=== PATIENT | male | born 1975 | race Caucasian/White ===

== ENCOUNTER 2019-10-31 11:35 | Emergency (ER) | payer OTHER, SELFPAY ==
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
[2019-10-31 11:40] VITALS: BP 147/99; PULSE 100; TEMP 36.5; O2SAT 98
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
[2019-10-31] MEDS: KETOROLAC 30 MG/ML VIAL (*BKC) IV PUSH (11:56)
[2019-10-31] MEDS: TETANUS,DIPHTHERIA,AC PERTUSSIS ADULT 0.5 ML (ADACEL) IM (12:01)
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
== END 2019-10-31 13:36 | disposition home or self-care (01) ==
PROVIDERS: Emergency Provider Emergency Medicine; PCP Family Medicine
DX: S61.244A Puncture wound with foreign body of right ring finger without damage to nail, initial encounter (principal); Z23 Encounter for immunization; M19.90 Unspecified osteoarthritis, unspecified site; K21.9 Gastro-esophageal reflux disease without esophagitis; W34.00XA Accidental discharge from unspecified firearms or gun, initial encounter
CPT/HCPCS: 12001; 73130; 90471; 90715; 96365; 96375; 99284; J0690; J1885

== ENCOUNTER 2020-07-12 00:49 | Outpatient (CLI) | payer OTHER, SELFPAY ==
[2020-07-12 18:32] LABS: SARS-CoV-2 RNA PCR Negative
== END 2020-07-12 00:50 | disposition home or self-care (01) ==
LOC: ANHCOVIDDT 00:50
PROVIDERS: PCP Family Medicine Sports Medicine; Visit Provider Internal Medicine Gastroenterology
DX: Z01.812 Encounter for preprocedural laboratory examination (principal); Z20.828 Contact with and (suspected) exposure to other viral communicable diseases
CPT/HCPCS: 87635; C9803; U0003

== ENCOUNTER 2020-07-15 00:29 | Day surgery (SDC) | payer OTHER, SELFPAY ==
[2020-07-04 14:56] VITALS: BMI 33.2
[2020-07-15] MEDS: LACTATED RINGERS 1,000 ML 150 ML IV CONT (11:57)
[2020-07-15 12:00] VITALS: BP 131/85; PULSE 72; RESP 18; TEMP 35.9; O2SAT 97
--- NOTE | 2020-07-15 12:18 | WPDANESEPPF ---
Anes - Initial Pre Proc Eval Procedure: Operation Date: 07/15/20 13:00 Proposed Procedures p Screening Colonoscopy - Vishnu Rhoades MD Date/Time: 07/15/20 12:18 Surgeon: Vishnu Rhoades MD Pre Op Diagnosis: Fam Hx Colon Ca Patient Data Age: 45 Gender: M Height: 5 ft 9 in Weight: 103 kg Last Vital Signs Temp 96.6 F L 07/15/20 12:00 Pulse 72 07/15/20 12:00 Resp 18 07/15/20 12:00 BP 131/85 07/15/20 12:00 Pulse Ox 97 07/15/20 12:00 Allergies Allergy/AdvReac Type Severity Reaction Status Date / Time No Known Allergies Allergy Verified 07/15/20 11:46 Home Medications Medication Instructions Recorded Confirmed Type No Home Medications 07/15/20 07/15/20 History Patient hx anesthesia problems: none Family hx anesthesia problems: none PMFSH Past Medical History Medical History (Updated 11/01/19 @ 00:00 by Yvonne Stratton) Arthritis Bronchitis GERD (gastroesophageal reflux disease) Pneumonia Right wrist fracture Seasonal allergies Surgical History Surgical History (Updated 10/31/19 @ 11:43 by Nadia Diaz) H/O local excision of skin lesion History of appendectomy History of cardiac cath Family History Family History Mother Hypertension Social History Social History Smoking status: Never smoker Smokeless tobacco user: chewing tobacco Alcohol intake: current Drinks per week: 0 Alcohol use details: MAY HAVE A COUPLE DRINKS PER YEAR Substance use: never Substance use type: does not use Living arrangements: with family Gender identity (if verbalized by the patient): Male Spiritual care concerns: No Anes - Eval Final PreProcedure Day of Procedure 07/15/20 12:18 Patient weight: overweight Heart: regular rate and rhythm Lungs: clear to auscultation Airway: Mallampati scale class II Neurological: alert and oriented Last oral intake: >/= 8 hours ASA classification: III Emergent: no Anesthetic plan: proceed Anesthesia type and monitoring: general GIVS and standard monitoring Informed Consent: The patient's anesthetic plan and its attendant risks and benefits were discussed with the patient/family/POA. Questions were solicited and answers provided to the satisfaction of the patient/family/POA.
--- NOTE | 2020-07-15 12:55 | PM.HPGS ---
History of Present Illness History of Present Illness Consent: Risks, benefits, and alternatives have been discussed and questions answered. Patient agrees to proceed with procedure. Chief complaint: Fam Hx Colon Ca Narrative: Dontrell Burr is a 45 year old male with colon cancer in father, his last colonoscopy was 4 yeas ago with polyps. Review of Systems Constitutional: Constitutional: Denies headache(s) and Denies weakness Eyes: Eyes: Denies blurry vision ENT: Reports Normal hearing present, Denies headache(s) and Denies neck pain Cardiovascular: Cardiovascular: Denies chest pain and Denies dyspnea Respiratory: Respiratory: Denies dyspnea Gastrointestinal: Gastrointestinal: Reports no additional gastrointestinal complaints Genitourinary: Genitourinary: Denies dysuria Musculoskeletal: Musculoskeletal: Denies neck pain Integumentary/Breasts: Skin/Breast: Denies dry skin Neurologic: Reports Normal hearing present, Denies headache(s) and Denies weakness Psychiatric: Psychiatric: Denies anxiety Endocrine: Endocrine: Denies change in body appearance Hematologic/Lymphatic: Hematologic/Lymphatic: Denies easy bleeding Allergic/Immunologic: Allergic/Immunologic: Denies urticaria PMF Past Medical History Medical History (Updated 07/15/20 @ 12:56 by Vishnu Rhoades MD) Arthritis Bronchitis Family history of colon cancer in father GERD (gastroesophageal reflux disease) Pneumonia Right wrist fracture Seasonal allergies Surgical History Surgical History (Updated 10/31/19 @ 11:43 by Nadia Diaz) H/O local excision of skin lesion History of appendectomy History of cardiac cath Family History Family History Mother Hypertension Social History Social History Smoking status: Never smoker Smokeless tobacco user: chewing tobacco Alcohol intake: current Drinks per week: 0 Alcohol use details: MAY HAVE A COUPLE DRINKS PER YEAR Substance use: never Substance use type: does not use Living arrangements: with family Gender identity (if verbalized by the patient): Male Spiritual care concerns: No Meds Home Medications and Allergies Home Medications Medication Instructions Recorded Confirmed Type No Home Medications 07/15/20 07/15/20 History Allergies Allergy/AdvReac Type Severity Reaction Status Date / Time No Known Allergies Allergy Verified 07/15/20 11:46 Vital Signs Vital Signs - 24 hr 07/15/20 12:00 Temperature 96.6 F L Pulse Rate 72 Respiratory Rate 18 Blood Pressure 131/85 Pulse Oximetry 97 Exam Const: General: comfortable and no acute distress HENMT: General nose exam: Normal nares present Eyes: General: appearance normal, both eyes and all related structures Neck: Neck: no JVD Resp: Auscultation: clear to auscultation bilaterally Cardio: Rate: regular rate Rhythm: regular rhythm GI: Inspection: non-distended GI Palp: Yes Soft to palpation Skin: General skin exam: normal color Neuro: General: gait normal Speech: normal speech Extrem: General: normal to inspection Psych: Mental Status: mental status grossly normal Assessment and Plan Assessment and plan (1) Family history of colon cancer in father: Code(s): Z80.0 - Family history of malignant neoplasm of digestive organs Status: Acute Assessment and Plan: will proceed with colonoscopy
[2020-07-15 13:15] VITALS: BP 121/67; PULSE 60; RESP 20; O2SAT 96
--- NOTE | 2020-07-15 13:17 | PM.PROC ---
Procedure Note - Detailed Date of procedure: 07/15/20 Pre-op diagnosis: Fam Hx Colon Ca Surgeon: Vishnu Rhoades MD Endoscopist(s): Vishnu Rhoades MD Referring Physician(s): Samir Hong, Instrument(s): [id number] [employer] Dehydration Reactor Operator(s): Anali Nieto RN Medication(s): See [facility] [employer] Report Indications: Family History of Colon Cancer (Z80.0) in father. Description of Procedure: Informed consent was obtained with the risks, benefits, and alternatives to sedation and procedure explained, including but not limited to: infection, bleeding, aspiration, perforation, adverse medication reaction, missed diagnosis, and missed lesions. The patient verbalized understanding and signed the informed consent form to proceed with the sedation and the procedure.Patient's last Colonoscopy was 4 years ago.No contraindications were noted on the physical exam. Immediately prior to sedation for endoscopy, the patient's ASA Classification was Class III: severe systemic disease, but not incapacitating. Patient re-examined and no interval changes noted from preoperative history and physical. After the patient was rolled into the procedure room, two methods of identification were used to identify the patient and the procedure to be performed prior to the procedure.Anesthesia was administered by anesthesia service. The bowel was prepared using SUPREP. The quality of the prep was excellent. Once the patient was comfortable a digital rectal exam was performed, and no masses were palpated. The patient was placed in the left lateral decubitus position.The instrument was inserted into the rectum and then advanced to the cecum.A retroflexion was performed in the rectum. The withdrawal time from the cecum was 7 minutes. The patient tolerated the procedure well. The patient's heart rate was normal. The oxygen saturation and skin color were normal. The patient will be recovered per established procedures and protocols upon discharge from the endoscopy suite. Findings: There were two 2 mm to 3 mm polyps observed in the descending colon. Multiple cold forceps polypectomies were performed. The polyps were completely excised. A few small diverticula were present in the transverse colon, in the descending colon, and in the sigmoid colon. The diverticula were not actively bleeding, no inflammation. Endoscopic Diagnosis: Colonic Polyp(s) (K63.5) Diverticulosis without Perforation or Abscess without Bleeding (K57.30) Suggested Billing Codes: Colonoscopy, flexible; with biopsy, single or multiple (16176) Recommendations: Ok to go home after recovery Next colonoscopy in 3 years Resume Diet Resume Home Medications Follow-up with your primary care physician for general care.
[2020-07-15 13:24] VITALS: BP 145/86; PULSE 60; RESP 23; O2SAT 95
[2020-07-15 13:34] VITALS: BP 127/85; PULSE 57; RESP 22; O2SAT 96
== END 2020-07-15 13:39 | disposition home or self-care (01) ==
PROVIDERS: PCP Family Medicine Sports Medicine; Visit Provider Internal Medicine Gastroenterology
PROC: 0DJD8ZZ Inspection of Lower Intestinal Tract, Via Natural or Artificial Opening Endoscopic (ICD-10-PCS; CPT 45378; principal; 2020-07-15 13:00)
DX: Z12.11 Encounter for screening for malignant neoplasm of colon (principal); K63.5 Polyp of colon; K57.30 Diverticulosis of large intestine without perforation or abscess without bleeding; Z80.0 Family history of malignant neoplasm of digestive organs; F17.220 Nicotine dependence, chewing tobacco, uncomplicated
CPT/HCPCS: 45380; 87635; 88305; C9803; J2704; J7120; U0003

== ENCOUNTER 2021-08-23 07:10 | Emergency (ER) | payer OTHER, SELFPAY ==
[2021-08-23] VITALS (10 sets, daily range): BP systolic 48–136; BP diastolic 39–90; PULSE 58–74; RESP 18–33; TEMP 36.1–37.2; O2SAT 96–99
--- NOTE | ~2021-08-23 | CT_ITS ---
EXAMINATION: CTA chest PE protocol DATE: 08/23/2021 09:31 [employer]VIEW[employer] INDICATION: Positive d-dimer. Covid positive. Evaluate for pulmonary embolism. TECHNIQUE: Computed tomographic angiography (CTA) of the chest was performed with 100 mL Omnipaque-35 0 intravenous contrast. The dose-length product was 789.37 mGy-cm. Maximum intensity projection 3D-re constructions of the aorta and other arteries were constructed by the technologist on a separate work station. Automated exposure control and iterative reconstruction technique were employed. COMPARISON: Chest x-ray dated 08/23/2021. FINDINGS: Study is technically adequate without evidence for pulmonary embolism. Borderline heart siz e. No thoracic lymphadenopathy. Patchy groundglass opacities throughout both lungs, consistent with p neumonia. No endobronchial lesions. No pneumothorax. The upper abdomen is unremarkable. Mild thoracic spondylosis. IMPRESSION: 1. Patchy bilateral groundglass opacities throughout both lungs, consistent with pneumonia. 2: No evidence for pulmonary embolism. Reviewed, dictated and finalized at location A. INTERVIEW[employer] IMPRESSION: 1. Patchy bilateral groundglass opacities throughout both lungs, consistent wit h pneumonia. 2: No evidence for pulmonary embolism.
--- NOTE | ~2021-08-23 | XR_ITS ---
XR chest 1V portable 08/23/2021 08:12 Indication: Covid. Cough and shortness of breath. Chest tightness. Procedure: AP portable chest Comparison: 05/13/2015 Findings: Borderline heart size. Patchy bilateral airspace disease. No pleural effusion or pneumothor ax. No acute osseous abnormality. Impression: 1: Patchy bilateral airspace disease, compatible with pneumonia. Reviewed, dictated and finalized at location A. PRUNER Impression: 1: Patchy bilateral airspace disease, compatible with pneumonia.
--- NOTE | 2021-08-23 07:33 | ED.SOB ---
HPI - SOB/Dyspnea General Chief Complaint: Shortness of Breath/Dyspnea Stated Complaint: SOB, COVID + 08/13 Time Seen by Provider: 08/23/21 07:14 Source: patient Mode of arrival: ambulatory Limitations: no limitations History of Present Illness HPI Narrative: Patient is a 46-year-old male presenting for evaluation of dull, aching chest pain and shortness of breath. Patient states that he has had chest pain since yesterday morning. Pain has been intermittent in nature, associated with coughing and shortness of breath. Patient states he has been Covid positive since August 13. He is unvaccinated. He reports intermittent fever, chills, loss of sense of taste. No significant abdominal pain or diarrhea. Patient states his daughter has had Covid twice, unsure who his recent sick contact is. Patient states his fevers have mostly subsided but he still has a dry cough, shortness of breath. Patient denies any leg swelling or calf pain. No pleuritic pain. Pain is in the front of his chest and middle back. No radiation to the neck, jaw, shoulder. Patient states he has a history of abnormal EKG. States he had a stress test approximately 20 years ago for an EKG that was abnormal and it was normal. 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 He does not smoke. No history of coronary artery disease, hypertension or hyperlipidemia. Related Data Allergies Allergy/AdvReac Type Severity Reaction Status Date / Time No Known Allergies Allergy Verified 07/15/20 11:46 Review of Systems Review of Systems: CONSTITUTIONAL: Reports intermittent fever, chills EYES: Denies visual changes, redness, or discharge. ENT: Denies rhinorrhea, congestion, sore throat, or otalgia. CARDIOVASCULAR: Reports chest pain without palpitations or edema RESPIRATORY: Reports cough and shortness of breath GASTROINTESTINAL: Denies abdominal pain, nausea, vomiting, or diarrhea. GENITOURINARY: Denies dysuria or hematuria. SKIN: Denies rash or itching. MUSCULOSKELETAL: Reports mild back pain without other joint pain or myalgias NEUROLOGIC: Denies headache, numbness, or weakness. [facility] Past Medical History Medical History Arthritis Bronchitis Family history of colon cancer in father GERD (gastroesophageal reflux disease) Pneumonia Right wrist fracture Seasonal allergies Surgical History Surgical History H/O local excision of skin lesion History of appendectomy History of cardiac cath Family History Family History Mother Hypertension Social History Social History Smoking status: Never smoker Smokeless tobacco user: chewing tobacco Alcohol intake: current Drinks per week: 0 Alcohol use details: MAY HAVE A COUPLE DRINKS PER YEAR Substance use: never Substance use type: does not use Gender identity (if verbalized by the patient): Male Spiritual care concerns: No Exam Narrative: GENERAL: Awake, alert, conversant HEAD: Normocephalic, atraumatic. EYES: PERRLA and EOMI. ENT: Nares clear, no rhinorrhea or epistaxis. Mucous membranes moist. NECK: Supple. CHEST: No respiratory distress, breathing even and non labored HEART: Regular rate, sinus rhythm, no murmurs ABDOMEN:Non distended, non tender EXTREMITIES: Normal range of motion. No edema. No calf tenderness bilaterally. SKIN: Warm, dry, no rash. NEURO:No focal deficits. Alert and oriented x3 Course Vital Signs Vital signs: Vital Signs Temperature 36.1 C L 08/23/21 07:34 Pulse Rate 72 08/23/21 07:34 Respiratory Rate 08/23/21 07:34 Blood Pressure 131/90 08/23/21 07:34 Pulse Oximetry 98 08/23/21 07:34 Temperature 37.2 C 08/23/21 08:04 Pulse Rate 58 L 08/23/21 12:16 Respiratory Rate 08/23/21 12:16 Blood Pressure 127/75 08/23/21 12:
--- NOTE | 2021-08-23 07:44 | ECG_ITS ---
Measurements Intervals [place] Rate: 76 P: 44 MN: 171 QRS: 57 QRSD: 101 T: 238 QT: 379 QTc: 426 Interpretive Statements SINUS RHYTHM HIGH LATERAL INFARCT, AGE INDETERMINATE ST-T WAVE ABNORMALITY IN ANTEROLAT/INF LEADS- CONSIDER ISCHEMIA BASELINE ARTIFACT- II, III, AVR, AVF, V2-V6 ABNORMAL ECG Electronically Signed On 08-23-2021 8:34:47 COPYMAN by Chris Jean D.O.
[2021-08-23] MEDS: SODIUM CHLORIDE 0.9% IV 1,000 ML 999 ML IV CONT (07:53)
[2021-08-23] MEDS: ONDANSETRON INJ 4 MG/2 ML VIAL IV PUSH (07:55)
[2021-08-23] MEDS: MORPHINE SULFATE (*CRX) 4 MG/ML INJ IV PUSH (07:55)
[2021-08-23] MEDS: ASPIRIN 81 MG CHEWABLE TABLET 324 MG PO (07:58)
[2021-08-23 08:06] LABS: Hemoglobin 13.8 g/dL (14.0-18.0); Immature Granulocyte Absolute 0.04 K/mm3 (0.00-0.031); Lymphocytes Absolute Auto 0.88 K/mm3 (0.9-3.2); Mean Corpuscular HGB Conc 35.4 g/dl (32-36); Mean Corpuscular Hemoglobin 30.7 pg (26-34); Mean Corpuscular Volume 86.9 fl (80-100); Mean Platelet Volume 10.2 fl (7.4-10.4); Monocytes Absolute Auto 0.8 K/mm3 (0.1-0.6); Neutrophils Absolute Auto 2.3 K/mm3 (1.3-6.7); Platelet Count Result 170 k/mm3 (150-375); Red Blood Count 4.49 M/mm3 (4.6-6.20); Red Cell Distribution Width 11.6 % (11.5-14.5)
[2021-08-23 08:16] LABS: Alanine Aminotransferase 62 U/L (4-50); Alkaline Phosphatase 66 U/L (38-126); Anion Gap 11 mmol/L (8-16); Aspartate Amino Transferase 58 U/L (17-59); Bilirubin,Total 0.8 mg/dL (0.2-1.3); Blood Urea Nitrogen 14 mg/dL (9-20); Calcium 8.7 mg/dL (8.4-10.2); Carbon Dioxide 20 mmol/L (22-30); Chloride 100 mmol/L (98-107); Estimated CRCL calculation 98 ml/min; Estimated Glomerular Filt Rate > 60; Glucose 100 mg/dL (65-110); Sodium 131 mmol/L (137-145)
[2021-08-23 08:28] LABS: NT Pro B Type Natriuretic Pept 230 pg/mL (5-100); Troponin I 0.019 ng/mL (0.000-0.034)
[2021-08-23 08:49] LABS: D Dimer 0.58 ug/mL (<0.48)
[2021-08-23 11:16] LABS: Troponin I 0.018 ng/mL (0.000-0.034)
--- NOTE | 2021-08-23 12:14 | ECG_ITS ---
Measurements Intervals [place] Rate: 60 P: 30 [place]: 183 QRS: 10 QRSD: 106 T: 194 QT: 432 QTc: 433 Interpretive Statements SINUS RHYTHM LEFT VENTRICULAR HYPERTROPHY AND ST-T CHANGE HIGH LATERAL INFARCT, AGE INDETERMINATE ST-T WAVE ABNORMALITY IN ANTEROLATERAL LEADS- CONSIDER ISCHEMIA BASELINE ARTIFACT- II, III, AVF, V4-V6 ABNORMAL ECG Electronically Signed On 08-23-2021 16:07:26 JANITORIAL MAINTENANCE WORKER by Chris Jean D.O.
== END 2021-08-23 12:41 | disposition home or self-care (01) ==
PROVIDERS: Emergency Provider Emergency Medicine; PCP Family Medicine Sports Medicine
DX: U07.1 COVID-19 (principal); J12.82 Pneumonia due to coronavirus disease 2019; M19.90 Unspecified osteoarthritis, unspecified site; R07.89 Other chest pain; K21.9 Gastro-esophageal reflux disease without esophagitis; Z87.01 Personal history of pneumonia (recurrent); F17.220 Nicotine dependence, chewing tobacco, uncomplicated; R94.31 Abnormal electrocardiogram [ECG] [EKG]; I51.7 Cardiomegaly
CPT/HCPCS: 36415; 71045; 71275; 80053; 83880; 84484; 85025; 85380; 93005; 96361; 96374; 96375; 99284; A9270; J2270; J2405; J7030; Q9967

== ENCOUNTER 2021-08-23 21:37 | Emergency (ER) | payer OTHER, SELFPAY ==
--- NOTE | 2021-08-23 21:39 | ECG_ITS ---
Measurements Intervals [place] Rate: 72 P: 26 [place]: 188 QRS: 7 QRSD: 101 T: 180 QT: 385 QTc: 422 Interpretive Statements SINUS RHYTHM LEFT VENTRICULAR HYPERTROPHY AND ST-T CHANGE MINIMAL Q WAVES- HIGH LATERAL LEADS ST-T WAVE ABNORMALITY IN ANTEROLAT/HIGH LAT LEADS- CONSIDER ISCHEMIA BASELINE ARTIFACT- V3, V6 ABNORMAL ECG Electronically Signed On 08-24-2021 6:34:13 PMO CONSULTANT by Chris Jean D.O.
[2021-08-23 21:46] VITALS: BP 129/73; PULSE 70; RESP 24; TEMP 36.8; O2SAT 97
[2021-08-24] VITALS (18 sets, daily range): BP systolic 121–133; BP diastolic 56–77; PULSE 61–82; RESP 12–27; TEMP 36.6; O2SAT 97–100
--- NOTE | 2021-08-24 01:00 | PC.NURSE ---
Patient states he had tested positive with covid via home test on 08/13/21.
[2021-08-24 01:21] LABS: Hematocrit 38.3 % (42.0-52.0); Hemoglobin 13.2 g/dL (14.0-18.0); Mean Corpuscular HGB Conc 34.5 g/dl (32-36); Mean Corpuscular Hemoglobin 30.5 pg (26-34); Mean Corpuscular Volume 88.5 fl (80-100); Mean Platelet Volume 9.5 fl (7.4-10.4); Platelet Count Result 151 k/mm3 (150-375); Red Blood Count 4.33 M/mm3 (4.6-6.20); Red Cell Distribution Width 11.7 % (11.5-14.5); White Blood Count 3.8 K/mm3 (4.5-10.0)
[2021-08-24 01:33] LABS: Alanine Aminotransferase 67 U/L (4-50); Alkaline Phosphatase 48 U/L (38-126); Anion Gap 8 mmol/L (8-16); Aspartate Amino Transferase 68 U/L (17-59); Bilirubin,Total 0.8 mg/dL (0.2-1.3); Blood Urea Nitrogen 13 mg/dL (9-20); Calcium 8.6 mg/dL (8.4-10.2); Carbon Dioxide 24 mmol/L (22-30); Chloride 100 mmol/L (98-107); Estimated CRCL calculation 108 ml/min; Estimated Glomerular Filt Rate > 60; Glucose 87 mg/dL (65-110); Sodium 132 mmol/L (137-145)
[2021-08-24 01:44] LABS: Troponin I < 0.012 ng/mL (0.000-0.034)
[2021-08-24] MEDS: KETOROLAC 15 MG/ML VIAL (*BKC) IV PUSH (01:53)
[2021-08-24] MEDS: SODIUM CHLORIDE 0.9% IV 1,000 ML 999 ML IV CONT (01:53)
[2021-08-24] MEDS: MORPHINE SULFATE (*CRX) 4 MG/ML INJ IV PUSH (01:53)
[2021-08-24] MEDS: BENZONATATE 100 MG CAPSULE 200 MG PO (01:53)
[2021-08-24] MEDS: IPRATROPIUM BR 0.02% INH SOLN 0.5 MG/2.5 ML VIAL INHALATION (01:59)
[2021-08-24] MEDS: ALBUTEROL SULFATE NEB 2.5 MG/0.5 ML INH 5 MG INHALATION (01:59)
[2021-08-24 02:00] LABS: Lymphocytes Absolute Manual 1.71 K/mm3 (1.1-4.5); Monocytes Absolute Manual 0.34 K/mm3 (0.1-0.90); Monocytes Percent Manual 9 % (3-9); Neutrophils Percent Manual 46 % (46-73); Total Cells Counted 100
[2021-08-24 02:01] LABS: Atypical Lymphocytes Present; Large Platelets Present; Ovalocytes 1+ (NORMAL); Platelet Estimate Adequate (Adequate)
[2021-08-24 02:02] LABS: Stomatocytes 1+ (NORMAL)
--- NOTE | 2021-08-24 02:40 | ED.GENADULT ---
HPI - General Adult General Chief complaint: Chest Pain Stated complaint: Heart Fluttering Time Seen by Provider: 08/24/21 00:59 History of Present Illness HPI narrative: Patient is a 46-year-old gentleman who presents the emergency department with chief complaint of chest and back pain. Patient reports that he was seen in the emergency department yesterday after he had been diagnosed with COVID-19 and was having pain in his chest. Patient had a abnormal EKG but had negative troponins. The patient is to follow-up with cardiology as an outpatient and the patient states that he was coughing and his chest hurting hurting more. Related Data Allergies Allergy/AdvReac Type Severity Reaction Status Date / Time No Known Allergies Allergy Verified 07/15/20 11:46 Review of Systems Review of Systems: A 10 system review of systems was completed on the patient and is negative except for what is stated in the HPI. Nursing and ancillary documentation was reviewed. PMFSH Past Medical History Medical History Arthritis Bronchitis Family history of colon cancer in father GERD (gastroesophageal reflux disease) Pneumonia Right wrist fracture Seasonal allergies Surgical History Surgical History H/O local excision of skin lesion History of appendectomy History of cardiac cath Family History Family History Mother Hypertension Social History Social History Smoking status: Never smoker Smokeless tobacco user: chewing tobacco Alcohol intake: current Drinks per week: 0 Alcohol use details: MAY HAVE A COUPLE DRINKS PER YEAR Substance use: never Substance use type: does not use Gender identity (if verbalized by the patient): Male Spiritual care concerns: No Exam Narrative: GENERAL: Well-appearing, well-nourished, and in no acute distress. HEAD: Normocephalic, atraumatic. EYES: PERRLA and EOMI. ENT: Nares clear, no rhinorrhea or epistaxis. Mucous membranes moist. NECK: Supple. CHEST: Clear to auscultation. No respiratory distress. HEART: Regular rate and rhythm. No murmur heard. Normal peripheral pulses. ABDOMEN: Soft, nontender, nondistended, normal active bowel sounds. EXTREMITIES: Normal range of motion. No edema. SKIN: Warm, dry, no rash. NEURO: No focal deficits. Alert and oriented x3. PSYCH: Normal mood and affect. Course Course Emergency Course: EKG shows T wave inversions rate of 72 findings consistent with LVH Vital Signs Vital signs: Vital Signs Temperature 36.8 C 08/23/21 21:46 Pulse Rate 70 08/23/21 21:46 Respiratory Rate 24 H 08/23/21 21:46 Blood Pressure 129/73 08/23/21 21:46 Pulse Oximetry 97 08/23/21 21:46 Temperature 36.8 C 08/23/21 21:46 Pulse Rate 82 08/24/21 02:07 Respiratory Rate 20 08/24/21 02:07 Blood Pressure 133/74 08/24/21 00:54 Pulse Oximetry 100 08/24/21 00:54 Medical Decision Making Vital Signs Vital Signs: Vital Signs Temperature 36.8 C 08/23/21 21:46 Pulse Rate 70 08/23/21 21:46 Respiratory Rate 24 H 08/23/21 21:46 Blood Pressure 129/73 08/23/21 21:46 Pulse Oximetry 97 08/23/21 21:46 Temperature 36.8 C 08/23/21 21:46 Pulse Rate 82 08/24/21 02:07 Respiratory Rate 20 08/24/21 02:07 Blood Pressure 133/74 08/24/21 00:54 Pulse Oximetry 100 08/24/21 00:54 Lab Data Result diagrams: 08/24/21 01:16 08/24/21 01:16 Labs: Lab Results 08/24/21 08/24/21 08/24/21 Range/Units 01:16 01:16 01:16 WBC 3.8 L (4.5-10.0) K/mm3 RBC 4.33 L (4.6-6.20) M/mm3 Hgb 13.2 L (14.0-18.0) g/dL Hct 38.3 L (42.0-52.0) % MCV 88.5 (80-100) fl MCH 30.5 (26-34) pg MCHC 34.5 (32-36) g/dl RDW 11.7 (11.5-1
== END 2021-08-24 03:16 | disposition home or self-care (01) ==
PROVIDERS: Emergency Provider Emergency Medicine; PCP Family Medicine Sports Medicine
DX: U07.1 COVID-19 (principal); R07.89 Other chest pain; K21.9 Gastro-esophageal reflux disease without esophagitis; Z87.01 Personal history of pneumonia (recurrent); F17.220 Nicotine dependence, chewing tobacco, uncomplicated; I51.7 Cardiomegaly; R94.31 Abnormal electrocardiogram [ECG] [EKG]
CPT/HCPCS: 36415; 71045; 71275; 80053; 83880; 84484; 85025; 85380; 93005; 94640; 96361; 96374; 96375; 99284; A9270; J1885; J2270; J2405; J7030; Q9967

== ENCOUNTER 2025-03-02 11:02 | Emergency (ER) | payer OTHER, SELFPAY ==
--- OUTSIDE RECORDS SUMMARY | 2025-03-02 11:05 | XMS_ITS ---
Author Organization [employer] Address [address] [place] [address] [address] [place] [address] Care Team Providers Care Hay Chopper Name Role Phone Leonard Daigle MD Primary Care Provider UnavailRonni Lemus Unavailable [phone] Peggy Castillo Unavailable Unavailable Allergies No Known Allergies REASON FOR VISIT Acid Reflux, Follow-up Social History Tobacco Control (Standard) Question Answer Notes Additional Findings: Tobacco user Chews tobacco Encounters Encounter Location Date Provider Diagnosis [facility], [address] [place] [address] 12/27/2024 Ronni Grady Plan Of Treatment No Information Progress Notes * Dontrell CASILLAS TDOB: [birth year] (49 yo M)Acc No.[id number]:12/27/2024 Patient: Dontrell GARCIA Provider: Levy Grady D.O. :1975 A ge:49 Y S ex:Male Date:12/27/2024 Address:[address] [place], [place] [id number] Pcp:Leonard Daigle MD Subjective: * Chief Complaints: * 1 . Acid Reflux. 2. Follow-up. * ROS: G I Bleeding: Melena N o. H ematochezia N o. H ematemesis?No. A nemia N o. G I-Stomach: Nausea/Emesis N o. P ain N o. P UD N o.?Anorexia N o. G I-Esophageal: Dysphagia N o. O dynophagia N o. C hest Pain?No. G ER Sx Y es. G I-Liver/GB: Jaundice N o. H epatitis N o. G allstones N o. P ancreatitis N o. G I-Colon: Colitis/IBS N o. D iarrhea N o. C onstipation?No. H emorrhoids N o. G eneral/Constitutional: Fever N o. C hills N o. W eight Loss N o.? S kin: Rash N o. P ruritus N o. I cterus N o. P hotosensitivity N o. E NT: Diplopia N o. V isual Loss N o. T innitus N o. V ertigo N o. D eafness Y es. P oor Dentition N o. H ematology: Easy Bruising N o. H emophilia N o. H ematologic Malignancy N o. L ymphadenopathy N o. H istory of Petechia N o. A nemia?No. C ardiovascular: Palpitations N o. S yncope N o. P ND N o.?ESCAMILLA N o. O rthopnea N o. C hest Pain N o. R espiratory: Cough N o. S putum Production N o. H emoptysis?No. W heezing N o. T B N o. S OB N o. N eurologic: Stroke N o. S eizure Disorder N o. T remor N o. P aralysis N o. S yncope N o. G enitourinary: Dysuria N o. P olyuria N o. I ncontinence N o. R enal Failure N o. H ematuria N o. M usculoskeletal: Joint Pain N o. S welling N o. S tiffness N o. M uscle Weakness N o. M yalgia N o. E ndocrine: Thyroid Disease N o. D iabetes N o. P olyphagia?No. P olydipsia N o. P sychiatric: Delusions N o. H allucinations N o. S uicidal Ideations N o. A llergy/Immunology: Hives N o. C hronic Sinusitis N o. H istory of Anaphylaxis N o. * Medical History: G ERD, Hiatal Hernia, Colon Polyps, Hearing Loss. * Surgical History: C olonoscopy 11/2024, Appendectomy , Vasectomy , Eye Surgery , Cardiac Catheterization . * Family History: M other: diagnosed with Malignant neoplasm of colon, unspecified part of colon. * Social History: T obacco Use: T obacco Control (Standard) A dditional Findings: Tobacco user C hews tobacco D rugs/Alcohol: D o you Drink Alcohol?: Yes, Rarely. * Medications: N one * Allergies: N .K.D.A. Objective: * Vitals: * Examination: P hysical Examination: GENERAL: A ppears stated age, in no apparent distress. SKIN: N o rash, ecchymoses, petechial, or telangiectasia.? HEENT: Normocephalic, EOMI, Nasal & buccal mucosa clear. NECK: Supple without masses., Normal Range of Motion, No jugular venous distention. LYMPH NODES: No cervical, supraclavicular, or axillary lymphadenopathy. CARDIAC: RRR without murmur, gallop, or rub. PULMONARY: Clear to auscultation and percussion bilaterally. ABDOMEN: B S positive, soft, non-tender, No masses, organomegaly, rebound, or ascites. EXTREMITIES: N o cyanosis, clubbing, or edema. NEUROLOGIC: A lert and oriented x3, No asterixis, Nonfocal examination. C QM Exceptions: Influenza Vaccine not administered: R gonzalez: M edical Reason Pneumococcal Vaccine not administered: R gonzalez: M edical Reason TD or Tdap vaccine not administered R gonzalez: M edical reason Zoster vaccine not administered R gonzalez: M edical reason Assessment: Plan: * Treatment: * Images: * Electronic signature of Godfrey Grady DO on 03/02/2025 at 11:04 AM CDT Sign off status: Pending * Provider: Levy Grady D.O. Date: 0 12/27/2024 Generated for Anastasiia berkowitz/Kasi/Sascha on: 03/02/2025 11:04 AM CDT
--- OUTSIDE RECORDS SUMMARY | 2025-03-02 11:05 | XMS_ITS | Clinical Summary ---
Author Organization [facility] Address [address] [place] [address] Care Team Providers Care Rn Surgery Icu Name Role Phone Samir Hong MD Primary Care Provider [phone] Allergies No known active allergies Medications pantoprazole DR (PROTONIX) 40 mg EC tabletIndicatio ns:Mucositis Prophylaxis Take 1 tablet (40 mg total) by mouth daily for 14 days 14 tablet 2 Active Additional Information Patient not taking.Reported on 09/21/2024 albuterol 2.5 mg /3 mL (0.083 %) nebulizer solution Take 3 mL (2.5 mg total) by nebulization every 6 (six) hours as needed for wheezing 75 mL 2 Active Additional Information Patient not taking.Reported on 09/21/2024 testosterone cypionate, micro (testosterone cyp, micro, bulk,) 100 % powder 0 3 Active testosterone enanthate 200 mg/mL injection Inject 1 mL (200 mg total) into the muscle as instructed once a week 180 mg 1.9 , I a week Active metoprolol XL (TOPROL-XL) 25 mg extended release tablet Take 1 tablet (25 mg total) by mouth daily 90 tablet 11 5 09/21/19 26 Active Active Problems Problem Noted Date Diagnosed Date Pleuritic chest pain 08/27/2021 Encounters Date Type Department Care Team Description 02/25/2025 Telephone [facility] Cardiology [address] [place] [address] [address], [place] [address] Bubba Conway MD cardiac clearance from Last 3 Months Immunizations Immunization Administration Dates Next Due Influenza, Trivalent, IM (V) 05/18/2012 Surgical History Surgery Date Site/Laterality Comments APPENDECTOMY Appendectomy CARDIAC CATHETERIZATION Medical History Medical History Date Comments Hx Other Medical 2003 Heart Cath Hx Other Medical dyslipidemia; C omments: NESSA 03/29/2014 - Hx Other Medical overweight; Com ments: NESSA 03/29/2014 - Gastroesophageal reflux disease GERD Chest pain Family History Medical History Relation Name Comments Other Father 2 Alive and well; Hypertension Mother 2 Hypertension; Other Mother 2 Alive and well; Relation Name Status Comments Father 1 Alive Father 2 Mother 1 Alive Mother 2 Social History Tobacco Use Types Packs/Day Years Used Date Smoking Tobacco: Never Smokeless Tobacco: Current Chew Alcohol Use Standard Drinks/Week Comments Yes 0 (1 standard drink = 0.6 oz pur e alcohol) Sex and Gender Information Value Date Recorded Sex Assigned at Not on file Legal Sex 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 CUTTER Gender Identity Not on file Sexual Orientation Not on file Obstetrics History Last Filed Vital Signs Vital Sign Reading Time Taken Comments Blood Pressure 124/86 09/21/2024 8:49 AM HAT CUTTER Pulse 63 09/21/2024 8:49 AM HAT CUTTER Temperature 36.5 C (97.7 F) 08/28/2021 8:00 AM HAT CUTTER Respiratory Rate 16 09/21/2024 8:49 AM HAT CUTTER Oxygen Saturation 98% 09/21/2024 8:49 AM HAT CUTTER Inhaled Oxygen Concentration - - Weight 104.3 kg (230 lb) 09/21/2024 8:49 AM HAT CUTTER Height 175.3 cm (5' 9) 09/21/2024 8:49 AM HAT CUTTER Body Mass Index 33.97 09/21/2024 8:49 AM HAT CUTTER Plan of Treatment Health Maintenance Due Date Last Done Comments Colon Cancer Screening-Colonoscopy 1975 Depression Screening 1975 Hepatitis C Screening 1975 Hepatitis B Screening 1994 Regular Well Visit/Exam 18-64 1994 Influenza Vaccine (#1) 2025 8, 05/18/2012 DTaP/Tdap/Td Vaccine (2 - Td or Tdap) 10/30/2029 10/31/2019 Pneumococcal vaccine <65 Aged Out No longer eligible based on patient's age to complete this topic Insurance [facility] CHOICE PLUS [facility] HMO/PPO Address: [address] [place] [address] [facility] HMO/PPO Address: [address] [place] [address] Advance Directives For more information, please contact: [phone] * Full Code (Latest Code Status on File) Date Activated Date Inactivated Comments 08/27/2021 3:30 AM 08/28/2021 10:00 PM Care Teams Rn Surgery Icu Relationship Specialty Start Date End Date Samir Hong MD [address] [place] [address] PCP - General Family Medicine 09/21/21
--- OUTSIDE RECORDS SUMMARY | 2025-03-02 11:05 | XMS_ITS | Referral Summary ---
Author Organization [facility] Address [address] [place] [address] Care Team Providers Care Orthopedic Dentist Name Role Phone Samir Hong MD Primary Care Provider [phone] Encounters Date Type Department Care Team Description 02/25/2025 Telephone [facility] Cardiology [address] [place] [address] [place] [address] uBbba Conway MD cardiac clearance from Last 3 Months Allergies No known active allergies Medications pantoprazole [...] Date Diagnosed Date Pleuritic chest pain 08/27/2021 Immunizations Immunization Administration Dates Next Due Influenza, Trivalent, IM (MDV) 05/18/2012 Social History Tobacco Use Types Packs/Day Years Used Date Smoking Tobacco: Never Smokeless Tobacco: Current Chew Alcohol Use Standard Drinks/Week Comments Yes 0 (1 standard drink = 0.6 oz pur e alcohol) Sex and Gender Information Value Date Recorded Sex Assigned at Not on file Legal 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 Gender Identity Not on file Sexual Orientation Not on file Last Filed Vital Signs Vital Sign Reading Time Taken Comments Blood Pressure 124/86 09/21/2024 8:49 AM JIGGER OPERATOR Pulse 63 09/21/2024 8:49 AM JIGGER OPERATOR Temperature 36.5 C (97.7 F) 08/28/2021 8:00 AM JIGGER OPERATOR Respiratory Rate 16 09/21/2024 8:49 AM JIGGER OPERATOR Oxygen Saturation 98% 09/21/2024 8:49 AM JIGGER OPERATOR Inhaled Oxygen Concentration - - Weight 104.3 kg (230 lb) 09/21/2024 8:49 AM JIGGER OPERATOR Height 175.3 cm (5' 9) 09/21/2024 8:49 AM JIGGER OPERATOR Body Mass Index 33.97 09/21/2024 8:49 AM JIGGER OPERATOR Plan of Treatment Not on file Insurance [facility] CHOICE PLUS [facility] CHOICE PLUS Advance Directives For more information, please contact: [phone] * Full Code (Latest Code Status on File) Date Activated Date Inactivated Comments 08/27/2021 3:30 AM 08/28/2021 10:00 PM Care Teams Orthopedic Dentist Relationship Specialty Start Date End Date Samir Hong MD [address] [place] [address] PCP - General Family Medicine 09/21/21
--- OUTSIDE RECORDS SUMMARY | 2025-03-02 11:05 | XMS_ITS | Patient Health Record ---
Author Organization [employer] Address [address] [facility] [address] [place] [address] Care Team Providers Care Industrial Chemistry Teacher Name Role Phone Leonard Daigle MD Primary Care Provider UnavailRonni Lemus Unavailable [phone] Peggy Castillo Unavailable Unavailable Allergies No Known Allergies Results Component Value Reference Range Notes Pathology Report Reviewed date:12/06/2024 12:44:29 PM Interpretation: Performing Lab: Notes/Report: DIAGNOSES A. Ascending Colon Polyp, Polypectomy: -Sessile serrated polyp/adenoma. B. Descending Colon Polyp, Polypectomy: -Tubular adenoma. CLINICAL HISTORY Screening in patient at increased risk. Colorectal cancer in mother before age 60. One 5 mm polyp in the ascending colon. One 5 mm polyp in the descending colon. GROSSING DESCRIPTION A. The specimen(s) are received in a Formalin-filled container labeled with the patients name and designated Ascending Colon Polyp Polypectomy. It contains 1 Romero to Brown fragment(s) of tissue that measure 4mm x 4mm x <1mm . The specimen was submitted entirely in 1 cassette(s). B. The specimen(s) are received in a Formalin-filled container labeled with the patients name and designated Descending Colon Polyp Polypectomy. It contains multiple Romero to Brown fragments ranging from <1mm x <1mm x <1mm to 3mm x 2mm x 1mm. The specimen was submitted entirely in 1 cassette(s). MICROSCOPIC DESCRIPTION Complete 100 microscopic examination is performed. The findings are included in the diagnosis rendered. Specimens A and B were evaluated with H&E stain. Textual Pathology Report SEE NOTES Reason For Referral Referral Organization [employer] Referring Provider First Name Ronni Referring Provider Last Name Grady Referring Provider Speciality Gastroente rology Referred Organization [facility] Referred Provider Ronni Grady Referred Address [address] [facility] [address],[place], [place],[address],[place] Referred Provider Specialty Gastroentero logy Referral Priority Routine Referral Organization [facility] [employer] Referring Provider First Name Ronni Referring Provider Last Name Miguel A [facility] Referred Organization [facility] Referred Provider Micah Gradyson Referred Address [address] [facility] [address],[place], [place],[address], Referred Provider Specialty Gastroentero logy General Notes Bebeto Reddyera 01/13 02:40:02 PM >CPT Code GEEGD Description: Esophagogastroduodenoscopy, Authorization Number: [id number], , Review Date: 01/24/2025 3:30:37 PM, Expiration Date: 04/24/2025, Status: Your case has been Approved Referral Priority Routine Referral Appointment Date 01/28/2025 Medications Medication SIG (Take, Route, Fr equency, Duration) Notes Start Date End Date Status Omeprazole 40 MG 1 capsule Orally Onc e a day for 30 day(s) 01/28/2025 Active Social History Tobacco Use: Social History Observation Description Date Details (start date - stop date) Former Smoker NA - NA Tobacco Control (Standard) Question Answer Notes Tobacco use: Former smoker How long has it been since you last smoked? Grea ter than 10 years Additional Findings: Tobacco user Chews tobacco Problems Problem Type SNOMED Code ICD Code Onset Dates Problem Status W/U Status Risk Notes Problem 55073195 Dysphagia (R13.10) Active confirmed Reports roughly 6 episodes of dysphagia however the last one occurred about 2 years ago. Esophagitis versus stricture versus EOE versus other Problem [id number] Chronic GERD (K21.9) Active confirmed We had a very long discussion regarding the natural history of chronic reflux disease. We discussed that his diet and lifestyle are likely greatly contributing to his reflux. A poor diet that is high in sugar and fat exacerbates his symptoms. He chews tobacco and occasional alcohol use also greatly exacerbate his symptoms. Discussed possible anatomical variations such as a hiatal hernia or large Hill flap that can exacerbate his reflux symptoms. Discussed need for EGD to exclude underlying Marquez's and anatomical variations. Vital Signs Height 68.5 in 01/24/2025 Weight 225 lbs 01/24/2025 BMI 33.71 kg/m2 01/24/2025 Procedures Procedure Date Ordered Date Performed Result Body Sit e Upper Endoscopy 01/24/2025 N/A Encounters Encounter Location Date Provider Diagnosis [facility] [address] [place] [address] 11/21/2024 Ronni Grady Colon cancer screening Z12.11 ; Family history of colon cancer Z80.0 and Benign colon polyp K63.5 [facility], [address] [place] [address] 01/24/2025 Ronni Grady Chronic GERD K21.9 ; Dysphagia R13.10 ; History of adenomatous polyp of colon Z86.0101 and Family history of colon cancer Z80.0 [facility] [address] [place] [address] 01/28/2025 Ronni Grady Chronic GERD K21.9 and Esophagitis K20.90 [facility], [address] [place] [place] [address] 11/15/2024 Ronni Grady [facility], [address] [place] [address] 11/15/2024 Ronni Grady [facility], [address] [place] [address] 01/22/2025 Ronni Grady [facility], [address] [place] [address] 01/24/2025 Ronni Grady Assessments Encounter Date Diagnosis (ICD Code) Assessment Notes Treatment Notes Treatment Clinical Notes Section Notes 11/21/2024 Colon cancer screening (ICD-10 - Z12.11) 11/21/2024 Family history of colon cancer (ICD-10 - Z80.0) 01/24/2025 Dysphagia (ICD-10 - R13.10) Reports roughly 6 episodes of dysphagia however the last one occurred about 2 years ago. Esophagitis versus stricture versus EOE versus other 1. EGD 01/24/2025 Chronic GERD (ICD-10 - K21.9) We had a very long discussion regarding the natural history of chronic reflux disease. We discussed that his diet and lifestyle are likely greatly contributing to his reflux. A poor diet that is high in sugar and fat exacerbates his symptoms. He chews tobacco and occasional alcohol use also greatly exacerbate his symptoms. Discussed possible anatomical variations such as a hiatal hernia or large Hill flap that can exacerbate his reflux symptoms. Discussed need for EGD to exclude underlying Marquez's and anatomical variations. 1. Will proceed with EGD. He was informed the risks of this procedure and is electing to proceed2. Avoid known trigger foods including diet soda3. Highly encouraged to abstain from tobacco use 01/28/2025 Chronic GERD (ICD-10 - K21.9) 01/28/2025 Esophagitis (ICD-10 - K20.90) 01/24/2025 History of adenomatous polyp of colon (ICD-10 - Z86.0101) Last colonoscopy November 2024. 2 small adenomatous polyps removed 1. Next colonoscopy recommended in 3 years 11/21/2024 Benign colon polyp (ICD-10 - K63.5) 01/24/2025 Family history of colon cancer (ICD-10 - Z80.0) Mother diagnosed with colon cancer before the age of 60 Plan Of Treatment Pending Test Test Name Order Date Upper Endoscopy 01/24/2025 Insurance Providers Payer Name Payer Address Payer Phone Subscriber Number Group Number Insured Name Patient Relationship to Insured Coverage Start Date Coverage End Date [facility] Choice/ choice Plus E2 [address] [place] [phone] [id number] Dontrell Burr Self - patient is the insured Medical (General) History Medical History History ICD Code Internal Hemorrhoids GERD Diverticulosis Hiatal Hernia Colon Polyps Apical Hypertrophic Cardiomyopathy Hearing Loss Surgical History Surgery Date(Month/Year) Colonoscopy 11/2024 Appendectomy Vasectomy Eye Surgery Cardiac Catheterization Hospitalization History Reason Date(Month/Year) COVID Pneumonia
[2025-03-02 11:16] VITALS: BP 126/80; PULSE 70; RESP 20; TEMP 36.6; O2SAT 97
--- OUTSIDE RECORDS SUMMARY | 2025-03-02 11:59 | XMS_ITS | Clinical Summary ---
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 Gender Identity Not on file Sexual Orientation Not on file Obstetrics History Last Filed Vital Signs Vital Sign Reading Time Taken Comments Blood Pressure 124/86 09/21/2024 8:49 AM BUCKLE ATTACHER Pulse 63 09/21/2024 8:49 AM BUCKLE ATTACHER Temperature 36.5 C (97.7 F) 08/28/2021 8:00 AM BUCKLE ATTACHER Respiratory Rate 16 09/21/2024 8:49 AM BUCKLE ATTACHER Oxygen Saturation 98% 09/21/2024 8:49 AM BUCKLE ATTACHER Inhaled Oxygen Concentration - - Weight 104.3 kg (230 lb) 09/21/2024 8:49 AM BUCKLE ATTACHER Height 175.3 cm (5' 9) 09/21/2024 8:49 AM BUCKLE ATTACHER Body Mass Index 33.97 09/21/2024 8:49 AM BUCKLE ATTACHER Plan of Treatment Health Maintenance Due Date Last Done Comments Colon Cancer Screening-Colonoscopy 1976 Depression Screening 1976 Hepatitis C Screening 1976 Hepatitis B Screening 1994 Regular Well Visit/Exam 18-64 1994 Influenza Vaccine (#1) 2025 8, 05/18/2012 DTaP/Tdap/Td Vaccine (2 - Td or Tdap) 10/30/2029 10/31/2019 Pneumococcal vaccine <65 Aged Out No longer eligible based on patient's age to complete this topic Insurance [facility] CHOICE PL[facility] H[facility]/PPO Address: [address] [place] [address] [facility] Address: [address] [place] [address] Advance Directives For more information, please contact: [phone] * Full Code (Latest Code Status on File) Date Activated Date Inactivated Comments 08/27/2021 3:30 AM 08/28/2021 10:00 PM Care Teams Optometric Tech Relationship Specialty Start Date End Date Samir Hong MD [address] [place] [address] PCP - General Family Medicine 09/21/21
--- OUTSIDE RECORDS SUMMARY | 2025-03-02 11:59 | XMS_ITS | Referral Summary ---
Author Organization [facility] Address [address] [place] [address] Care Team Providers Care Catering Barista Name Role Phone Samir Hong MD Primary Care Provider [phone] Encounters Date Type Department Care Team Description 02/25/[address] [facility] Cardiology [address] [place] [address] [place] [address] Bubba Conway MD cardiac clearance from [...] on file Legal Sex Male 1:11 AM ASSEMBLY PERSON Gender Identity Not on file Sexual Orientation Not on file Last Filed Vital Signs Vital Sign Reading Time Taken Comments Blood Pressure 124/86 09/21/2024 8:49 AM ASSEMBLY PERSON Pulse 63 09/21/2024 8:49 AM ASSEMBLY PERSON Temperature 36.5 C (97.7 F) 08/28/2021 8:00 AM ASSEMBLY PERSON Respiratory Rate 16 09/21/2024 8:49 AM ASSEMBLY PERSON Oxygen Saturation 98% 09/21/2024 8:49 AM ASSEMBLY PERSON Inhaled Oxygen Concentration - - Weight 104.3 kg (230 lb) 09/21/2024 8:49 AM ASSEMBLY PERSON Height 175.3 cm (5' 9) 09/21/2024 8:49 AM ASSEMBLY PERSON Body Mass Index 33.97 09/21/2024 8:49 AM ASSEMBLY PERSON Plan of Treatment Not on file Insurance [facility] CHOICE PLUS [facility] CHOICE PLUS Advance Directives For more information, please contact: [phone] * Full Code (Latest Code Status on File) Date Activated Date Inactivated Comments 08/27/2021 3:30 AM 08/28/2021 10:00 PM Care Teams Catering Barista Relationship Specialty Start Date End Date Samir Hong MD [address] [place] [address] PCP - General Family Medicine 09/21/21
--- NOTE | 2025-03-02 12:04 | ED.GENADULT ---
HPI - General Adult General Chief complaint: Unspecified Stated complaint: Hiccups since Tuesday with knee surg Time Seen by Provider: 03/02/25 11:44 History of Present Illness HPI narrative: This is a 41-year-old male presenting with postoperative hiccups. Patient had a meniscal repair performed on 02/27/2025. After the procedure he has been having intermittent bouts of hiccups. He has been unable to get a hold of his surgeon. He came to ED for evaluation as they are making it hard for him to sleep. He does not have any chest pain difficulty breathing fevers or leg swelling. No history of DVT PE. Resolved while the patient was in triage. Related Data Allergies Allergy/AdvReac Type Severity Reaction Status Date / Time No Known Allergies Allergy Verified 03/02/25 11:19 [facility] Past Medical History Medical History Arthritis Bronchitis Family history of colon cancer in father GERD (gastroesophageal reflux disease) Pneumonia Right wrist fracture Seasonal allergies Surgical History Surgical History H/O local excision of skin lesion History of appendectomy History of cardiac cath Family History Family History Mother Hypertension Social History Social History Smoking status: Never smoker Smokeless tobacco user: chewing tobacco Alcohol intake: current Drinks per week: 0 Alcohol use details: MAY HAVE A COUPLE DRINKS PER YEAR Substance use: never Substance use type: does not use Living arrangements: with family Gender identity (if verbalized by the patient): Male Spiritual care concerns: No Exam Narrative: APPEARANCE: No apparent distress. Head: atraumatic. EYES: EOMI, NOSE: Atraumatic NECK: Trachea midline RESPIRATORY: No increased rate of breathing clear to auscultation CARDIOVASCULAR: RRR, no swelling lower extremities ABDOMINAL: Non-distended MUSCULOSKELETAl: Right knee is in a clean dry intact Foreign bandage wrap, NEURO: Alert. Moving 4/4 extremities SKIN:: Warm, dry. Normal color PSYCHIATRIC: Normal affect Course Vital Signs Vital signs: Vital Signs Temperature 97.8 F 03/02/25 11:16 Pulse Rate 70 03/02/25 11:16 Respiratory Rate 20 03/02/25 11:16 Blood Pressure 126/80 03/02/25 11:16 Pulse Oximetry 97 03/02/25 11:16 Oxygen Delivery Room Air 03/02/25 11:16 Temperature 97.8 F 03/02/25 11:16 Pulse Rate 70 03/02/25 11:16 Respiratory Rate 20 03/02/25 11:16 Blood Pressure 126/80 03/02/25 11:16 Pulse Oximetry 97 03/02/25 11:16 Oxygen Delivery Room Air 03/02/25 11:16 Medical Decision Making MDM Narrative Medical decision making narrative: -Course: 49-year-old male presenting with postoperative hiccups. Symptoms have resolved and he is now feeling better. I discussed the low possibility of PE or coronary cause of his hiccups with both the patient and his . We discussed more invasive workup and the patient has declined. He says he feels well overall and now his hiccups have. He is not concerned about anything serious. He is requesting prescription with hiccups that they return. Have stressed the importance of him returning to the ED if he develops any new or worsening symptoms. Patient discharged. -DDX includes but is not limited to: Postoperative hiccups PE, pneumonia Vital Signs Vital Signs: Vital Signs Temperature 97.8 F 03/02/25 11:16 Pulse Rate 70 03/02/25 11:16 Respiratory Rate 03/02/25 11:16 Blood Pressure 126/80 03/02/25 11:16 Pulse Oximetry 97 03/02/25 11:16 Oxygen Delivery Room Air 03/02/25 11:16 Temperature 97.8 F 03/02/25 11:16 Pulse Rate 70 03/02/25 11:16 Respiratory Rate 03/02/25 11:16 Blood Pressure 126/80 03/02/25 11:16 Pulse Oximetry 97 03/02/25 11:16 Oxygen Delivery Room Air 03/02/25 11:16 Discharge Plan Discharge Clinical Impression: Hiccups Patient Disposition: Home Condition: Stable Instructions: Antibiotic Form, Hiccups (ED) Additional Instructions: Please use Thorazine for hiccups. Please follow-up with your surgeon for further management. If you develop chest pain shortness of breath or fevers please return to the ED for re-evaluation Patient Language: Indonesian Prescriptions: New chlorpromazine 25 mg tablet 25 mg PO Q6H PRN (Reason: hiccups) Qty: 30 0RF No Action oxycodone-acetaminophen [Percocet] 5-325 mg tablet 1 tablet PO Q6H PRN (Reason: pain) 3 Days Qty: 14 0RF benzonatate 200 mg capsule 200 mg PO TID PRN (Reason: cough) Qty: 21 0RF Follow-up/Referrals: Oxana,Leonard Kessler MD [Primary Care Provider] -
[2025-03-02 12:14] VITALS: BP 150/89; PULSE 70; RESP 18; O2SAT 98
== END 2025-03-02 12:16 | disposition home or self-care (01) ==
PROVIDERS: Emergency Provider Emergency Medicine; PCP Family Medicine
DX: R06.6 Hiccough (principal); Z98.890 Other specified postprocedural states; M19.90 Unspecified osteoarthritis, unspecified site; K21.9 Gastro-esophageal reflux disease without esophagitis; F17.220 Nicotine dependence, chewing tobacco, uncomplicated; Z87.01 Personal history of pneumonia (recurrent)
CPT/HCPCS: 99283; A9270